=== PATIENT | female | born 1940 | race Caucasian/White ===

== ENCOUNTER 2016-05-20 08:15 | Observation (INO) | payer OTHER ==
[2016-05-20] MEDS ORDERED: MECLIZINE HCL 25 MG TAB PO ONE (08:25)
--- NOTE | 2016-05-20 08:28 | CPEKG ---
Heart Rate: 50 RR Interval: 1200 P-R Interval: 228 QRSD Interval: 92 QT Interval: 448 QTC Interval: 409 P [place]: 67 QRS [place]: -4 T Wave [place]: 46 EKG Severity - ABNORMAL ECG - EKG Impression: SINUS RHYTHM EKG Impression: FIRST DEGREE AV BLOCK EKG Impression: NONSPECIFIC REPOL ABNORMALITY, DIFFUSE LEADS Electronically Signed By: Aggie Comer 20-May-2016 22:33:52
[2016-05-20 08:34] LABS: % IMMATURE GRANULYOCYTES 0.3 % (0.0-1.1); ABSOLUTE IMMATURE GRANULOCYTES 0.02 10^3/uL (0.00-0.10); ADD DIFF? NO; ADD MORPH? NO; ADD SCAN? NO; ATYPICAL LYMPHOCYTE FLAG 0 (0-99); FRAGMENT RBC FLAG 0 (0-99); HEMATOCRIT 42.7 % (38.0-47.0); LEFT SHIFT FLG 0 (0-99); LIPEMIA HEMOLYSIS FLAG 80 (0-99); MEAN CELL HEMOGLOBIN CONCENTR. 32.8 g/dL (32.4-36.7); MEAN CELL VOLUME 97.7 fL (81.5-99.8); MEAN PLATELET VOLUME 10.1 fL (8.7-11.7); PLATELET CLUMPS FLAG 10 (0-99); PLATELET COUNT 270 10^3/uL (150-400); RED BLOOD CELL COUNT 4.37 10^6/uL (4.18-5.33); RED CELL DISTRIBUTION WIDTH 13.7 % (11.5-15.2)
[2016-05-20] MEDS ORDERED: NS 500 ML IV ONE ×2 (08:37→12:41)
--- NOTE | 2016-05-20 08:37 | EDPHY ---
General - Diagnostics EKG: I reviewed patient's EKG. See [place] system for interpretation - History History Review: I reviewed the patient's medical records Narrative: CHIEF COMPLAINT: Dizziness, vomiting HISTORY OF PRESENT ILLNESS: sudden onset of dizziness last night while home. This is described as "my head was swimming." She does describe a spinning sensation. This was significantly worse with ambulation. Improved with rest and laying down. She was able to sleep but upon waking this morning and ambulating, she feels as though she was going to fall because the dizziness. She is very nauseated but did not vomit until EN route. Contacted EMS and they her port that she was normal vital signs at time of arrival. She did vomit on the way here. She is not hypotensive but she has been mildly bradycardic in the upper 40s to 50. No chest pain or shortness of breath. No headache. No abdominal or urinary complaints. No back pain. No other associated complaints or modifying factors. Arrives by EMS and is seen at time of arrival REVIEW OF SYSTEMS: Ten systems reviewed and are negative unless otherwise noted in the HPI EXAMINATION General Appearance: Alert, no distress Head: normocephalic, atraumatic Eyes: Pupils equal and round, no conjunctival pallor or injection. horizontal nystagmus without vertical nystagmus. EOMs intact. ENT, Mouth: Mucous membranes moist . Uvula midline. Airway patent. Neck: Normal inspection, supple, non-tender . Painless range of motion all planes Respiratory: Lungs are clear to auscultation. No wheezing rhonchi or crackles Cardiovascular: bradycardic rate of 50 beats per minute. Regular rhythm. No murmur. Gastrointestinal: Abdomen is soft and nontender . No tympany or rigidity. No CVA tenderness. Neurological: A&O, Strength is 5/5 in all limbs. Sensory intact symmetrically. No pronator drift. No focal deficits. Skin: Warm and dry, no rash Extremities: Nontender, no pedal edema Psychiatric: Mood and affect normal DIFFERENTIAL DIAGNOSES: Including but not limited to vertigo, dizziness, hypoglycemia, bradycardia, dehydration MDM: 8:30 a.m. complaints consistent with vertigo without any chest pain, headache or stroke- like symptoms. She is bradycardic at 50 beats per minute. Patient has a known hypoxia at night due to her scoliosis, which she does wear 2-3 L at night. She is requiring 2 L at this time without complication. She has no respiratory abnormalities. EKG has been done. Shows sinus bradycardia 50 beats per minute. There are mild ST depressions scattered, we are currently trying to obtain a previous EKG. No acute ischemia. 10:40 a.m. ongoing dizziness with bradycardia and intermittent hypoxia. She was attempted ambulating and failed with significant dizziness and near vomiting. I discussed the case with the hospitalists, and they will admit the patient to their service for further care. She remains normotensive but bradycardic. EKG: Interpreted by Dr. Comer Rate is 50 beats per minute.Sinus bradycardia. First-degree block. Mild, less than 1 mm, ST depression throughout. No ST elevation. No T-wave inversion other than AV are and V1. Biphasic T-waves in the lateral leads. Interpretation: Sinus bradycardia with first-degree block SUPERVISION:Patient was evaluated in conjunction with the supervising physician. Please see their note for details. (Nicola Becker) Discussion: The patient was evaluated and managed by the Physician Adoption Counselor/ Nurse Practitioner. I discussed the patient's presentation and course with the midlevel provider with them and agree with the evaluation. My co-signature indicates that I have reviewed this chart and I agree with the findings and plan of care as documented. I am the secondary supervising physician. (Aggie Comer) - Objective Vital Signs: Initial Vital Signs Temperature (C) 36.5 C 05/20/16 08:15 Heart Rate 51 L 05/20/16 08:15 Respiratory Rate 16 05/20/16 08:15 Blood Pressure 149/67 H 05/20/16 08:15 O2 Sat (%) 98 05/20/16 08:15 O2 Delivery Mode Nasal Cannula O2 (L/minute) 4 Allergies/Adverse Reactions: No Known Allergies Allergy (Unverified 03/13/13 13:50) Home Medications: Medication Instructions Recorded Aspirin EC [Aspirin EC 81 mg (*)] 81 mg PO BIDMEAL 05/20/16 Calcium Carb W/Vit D [Calcium Carb 1,000 mg PO DAILY 05/20/16 W/Vit D 500/200 (*)] Digoxin [Lanoxin 125 mcg (RX)] 125 mcg PO DAILY 05/20/16 Estradiol 0.5 mg PO HS 05/20/16 Lisinopril [Zestril 10 mg (*)] 10 mg PO HS 05/20/16 Multivitamins [Multivitamin (*)] 1 each PO DAILY@19 05/20/16 Propafenone HCl [Propafenone HCl 325 mg PO BID 05/20/16 ER] medroxyPROGESTERone [Provera 2.5 2.5 mg PO HS 05/20/16 mg (*)] metFORMIN HCL [Glucophage 500 mg 500 mg PO BIDMEAL 05/20/16 (*)] Acetaminophen [Tylenol 325mg (*)] 650 mg PO Q6HRS PRN #0 tab 05/21/16 Diazepam [Valium 2 MG (*)] 2 mg PO Q6HRS PRN #14 tab 05/21/16 Ibuprofen [Motrin (*)] 600 mg PO Q8HRS PRN #0 tab 05/21/16 Meclizine HCl [Meclizine HCl 25 mg 25 mg PO BID PRN #14 tab 05/21/16 (RX,OTC)] Laboratory Results: Laboratory Results 05/20/16 08:16 05/20/16 08:16 Medications Given: Discontinued Medications Aspirin Buffered (Aspirin Ec) 81 mg PO BIDMEAL [facility] Stop: 11/16/16 17:59 Last Admin: 05/21/16 10:15 Dose: Not Given Calcium/Vitamin D (Calcium Carb W/Vit D) 1,000 mg PO DAILY [facility] Stop: 11/17/16 08:59 Last Admin: 05/21/16 10:14 Dose: 1,000 mg Digoxin (Lanoxin) 125 mcg PO DAILY [facility] Stop: 11/17/16 08:59 Last Admin: 05/21/16 10:14 Dose: 125 mcg Estradiol (Estradiol) 0.5 mg PO [facility] Stop: 11/16/16 20:59 Last Admin: 05/20/16 21:10 Dose: 0.5 mg Sodium Chloride (Ns) 500 mls @ 0 mls/hr IV ONCE ONE PRN Reason: Wide Open Stop: 05/20/16 08:38 Last Admin: 05/20/16 08:47 Dose: 500 mls Sodium Chloride (Ns) 500 mls @ 1,500 mls/hr IV ONCE ONE Stop: 05/20/16 13:00 Last Admin: 05/20/16 13:14 Dose: 500 mls Sodium Chloride (Ns) 1,000 mls @ 100 mls/hr IV CONT YOAV Stop: 11/17/16 03:14 Last Admin: 05/21/16 03:42 Dose: 1,000 mls Insulin Human Lispro (Humalog Lispro) 0 unit SC TIDMEAL YOAV PRN Reason: Protocol Stop: 11/16/16 17:59 Last Admin: 05/21/16 09:17 Dose: Not Given Lisinopril (Zestril) 10 mg PO HS [facility] Stop: 11/16/16 20:59 Last Admin: 05/20/16 21:11 Dose: 10 mg Meclizine HCl (Meclizine Hcl) 12.5 mg PO EDNOW ONE Stop: 05/20/16 08:26 Last Admin: 05/20/16 09:58 Dose: 12.5 mg Medroxyprogesterone Acetate (Provera) 2.5 mg PO HS [facility] Stop: 11/16/16 20:59 Last Admin: 05/20/16 21:10 Dose: 2.5 mg Multivitamins (Tab-A-Gabo) 1 each PO DAILY@19 [facility] Stop: 11/16/16 18:59 Last Admin: 05/20/16 17:55 Dose: 1 each Ondansetron HCl (Zofran) 4 mg IVP EDNOW ONE Stop: 05/20/16 08:48 Last Admin: 05/20/16 08:47 Dose: 4 mg Propafenone HCl (Rythmol Sr) 325 mg PO BID [facility] Stop: 11/16/16 20:59 Last Admin: 05/21/16 10:17 Dose: Not Given Departure - Departure Disposition: [facility] Acute Clinical Impression: Dizziness, Sinus bradycardia, Hypoxia Condition: Good
[2016-05-20] MEDS ORDERED: ONDANSETRON 4 MG/2 ML VIAL ONE (08:45)
[2016-05-20] MEDS ORDERED: ONDANSETRON 4 MG/2 ML VIAL IVP ONE (08:47)
[2016-05-20 08:51] LABS: APTT 27.9 SEC (23.0-38.0); INR 0.98 (0.83-1.16); PROTIME(PATIENT) 12.9 SEC (12.0-15.0)
[2016-05-20 09:02] LABS: ALANINE AMINOTRANSFERASE 30 IU/L (9-52); ALBUMIN 3.7 g/dL (3.5-5.0); ALKALINE PHOSPHATASE 51 IU/L (38-126); ANION GAP 10 mEq/L (8-16); ASPARTATE AMINOTRANSFERASE 19 IU/L (14-46); BILIRUBIN,TOTAL 0.6 mg/dL (0.1-1.4); BILIRUBIN-CONJUGATED 0.2 mg/dL (0.0-0.5); BILIRUBIN-UNCONJUGATED 0.4 mg/dL (0.0-1.1); CALCIUM 9.4 mg/dL (8.5-10.4); CARBON DIOXIDE 29 mEq/l (22-31); CHLORIDE 105 mEq/L (97-110); CREATININE 0.9 mg/dL (0.6-1.0); DIGOXIN 1.2 ng/mL (0.8-2.0); GLOMERULAR FILTRATION RATE > 60; GLUCOSE 120 mg/dL (70-100); POTASSIUM 4.2 mEq/L (3.5-5.2); SODIUM 144 mEq/L (134-144); TOTAL PROTEIN 6.2 g/dL (6.3-8.2)
--- NOTE | 2016-05-20 09:04 | DX ---
Portable Chest, Single View 8:46 a.m. Hours Indication: Dizziness Comparison: 2 view chest dated June 10, 2013 Findings: No pulmonary edema or effusion. Cardiomegaly, hyperinflation, diffuse peribronchial thicken ing, marked dextrorotary curvature of the thoracic spine and 2 posterior rods with laminar hooks are unchanged since 2013. Impression: 1. No edema or acute process. 2. Cardiomegaly and chronic airways disease similar to May 2013.
[2016-05-20 09:11] LABS: TROPONIN I < 0.012 ng/mL (0-0.034)
[2016-05-20] MEDS ORDERED: ACETAMINOPHEN 325 MG TAB PO PRN (12:41)
[2016-05-20] MEDS ORDERED: ONDANSETRON DISINTEGRATING 4 MG TAB PO PRN (12:41)
[2016-05-20] MEDS ORDERED: IBUPROFEN 600 MG TAB PO PRN (12:41)
[2016-05-20] MEDS ORDERED: D50W 25 GM/50 ML SYR IVP PRN (12:44)
[2016-05-20] MEDS ORDERED: DIAZEPAM 2 MG TAB PO PRN (16:29)
[2016-05-20] MEDS ORDERED: MECLIZINE HCL 25 MG TAB PO PRN (16:29)
--- NOTE | 2016-05-20 16:34 | PDGENHP ---
History and Physical - Chief Complaint dizzyness - History of Present Illness 75 yo F with PMH of DM2 and paroxysmal a fib presenting with dizzyness and n/v. She notes that since this morning she has had dizzyness and sense that her head was spinning and her gait was off balance. She notes that it is worse with any movement including movement of her head, so she has been trying to stay very still since this morning. It was so severe and she was so concerned that she might fall, that she ultimately called 911 to bring her to the ER. She has had similar sxs in the past, but they have never lasted this long. There was no syncope or near syncope. She has not had chest pain or palpitations. She has not felt ill recently, has not had any cold like sxs or sinus congestion. Her symptoms have improved since getting meclizine in the ER, but she is still worried to move much or turn her head quickly. History Information - Allergies/Home Medication List Allergies/Adverse Reactions: No Known Allergies Allergy (Unverified 03/13/13 13:50) Home Medications: Aspirin EC [Aspirin EC 81 mg (*)] 81 mg PO BIDMEAL 05/20/16 [Last Taken 05/19/16 ] Calcium Carb W/Vit D [Calcium Carb W/Vit D 500/200 (*)] 1,000 mg PO DAILY [Last Taken 05/19/16] Digoxin [Lanoxin 125 mcg (RX)] 125 mcg PO DAILY 05/20/16 [Last Taken 05/19/16] Estradiol [Estradiol 0.5 MG (RX)] 0.5 mg PO HS 05/20/16 [Last Taken 05/19/16] Lisinopril [Zestril 10 mg (*)] 10 mg PO HS 05/20/16 [Last Taken 05/19/16] Multivitamins [Multivitamin (*)] 1 each PO DAILY@19 05/20/16 [Last Taken 19:00] Propafenone HCl [Propafenone HCl ER] 325 mg PO BID 05/20/16 [Last Taken 05/20/16 ] medroxyPROGESTERone [Provera 2.5 mg (*)] 2.5 mg PO HS 05/20/16 [Last Taken 05/19] metFORMIN HCL [Glucophage 500 mg (*)] 500 mg PO BIDMEAL 05/20/16 [Last Taken ] I have personally reviewed and updated: family history, medical history, social history, surgical history - Past Medical History atrial fibrillation (paroxysmal), diabetes type 2, hypertension Additional medical history: valvular heart disease with mitral valve prolapse. hematuria - Surgical History Reports: no pertinent surgical hx - Family History Positive for: non-pertinent - Social History Smoking Status: Former smoker Alcohol Use: Occasionally Drug Use: None Review of Systems ROS: 10pt was reviewed & negative except for what was stated in HPI & below Physical Exam Temp Pulse Resp BP Pulse Ox 36.7 C 52 L 18 111/56 L 96 05/20/16 12:35 05/20/16 12:35 05/20/16 12:35 05/20/16 12:35 05/20/16 12:35 Constitutional: no apparent distress, appears nourished Eyes: PERRL, EOMI Ears, Nose, Mouth, Throat: moist mucous membranes, hearing normal Cardiovascular: regular rate and rhythym, systolic murmur, No edema Respiratory: no respiratory distress, no rales or rhonchi, clear to auscultation Gastrointestinal: normoactive bowel sounds, soft, non-tender abdomen, no palpable masses Genitourinary: no bladder tenderness Skin: warm, normal color Musculoskeletal: full muscle strength, no muscle tenderness Neurologic: AAOx3, sensation intact bilaterally, CN II-XII Intact Psychiatric: interacting appropriately, not anxious, not encephalopathic Lab Data & Imaging Review 05/20/16 08:16 05/20/16 08:16 WBC 6.46 10^3/uL (3.80-9.50) 05/20/16 08:16 RBC 4.37 10^6/uL (4.18-5.33) 05/20/16 08:16 Hgb 14.0 g/dL (12.6-16.3) 05/20/16 08:16 POC Hgb 15.3 gm/dL (12.3-15.9) 05/20/16 08:21 Hct 42.7 % (38.0-47.0) 05/20/16 08:16 POC Hct 45 % (35.5-47.5) 05/20/16 08:21 MCV 97.7 fL (81.5-99.8) 05/20/16 08:16 MCH 32.0 pg (27.9-34.1) 05/20/16 08:16 MCHC 32.8 g/dL (32.4-36.7) 05/20/16 08:16 RDW 13.7 % (11.5-15.2) 05/20/16 08:16 Plt Count 270 10^3/uL (150-400) 05/20/16 08:16 MPV 10.1 fL (8.7-11.7) 05/20/16 08:16 Neut % (Auto) 53.1 % (39.3-74.2) 05/20/16 08:16 Lymph % (Auto) 32.4 % (15.0-45.0) 05/20/16 08:16 [place] % (Auto) 9.0 % (4.5-13.0) 05/20/16 08:16 Eos % (Auto) 3.7 % (0.6-7.6) 05/20/16 08:16 Baso % (Auto) 1.5 % (0.3-1.7) 05/20/16 08:16 Nucleat RBC Rel Count 0.0 % (0.0-0.2) 05/20/16 08:16 Absolute Neuts (auto) 3.43 10^3/uL (1.70-6.50) 05/20/16 08:16 Absolute Lymphs (auto) 2.09 10^3/uL (1.00-3.00) 05/20/16 08:16 Absolute Monos (auto) 0.58 10^3/uL (0.30-0.80) 05/20/16 08:16 Absolute Eos (auto) 0.24 10^3/uL (0.03-0.40) 05/20/16 08:16 Absolute Basos (auto) 0.10 10^3/uL (0.02-0.10) 05/20/16 08:16 Absolute Nucleated RBC 0.00 10^3/uL (0-0.01) 05/20/16 08:16 Immature Gran % 0.3 % (0.0-1.1) 05/20/16 08:16 Immature Gran # 0.02 10^3/uL (0.00-0.10) 05/20/16 08:16 PT 12.9 SEC (12.0-15.0) 05/20/16 08:16 INR 0.98 (0.83-1.16) 05/20/16 08:16 APTT 27.9 SEC (23.0-38.0) 05/20/16 08:16 POC Sodium 144 mEq/L (134-144) 05/20/16 08:21 Sodium 144 mEq/L (134-144) 05/20/16 08:16 POC Potassium 3.9 mEq/L (3.3-5.0) 05/20/16 08:21 Potassium 4.2 mEq/L (3.5-5.2) 05/20/16 08:16 POC Chloride 103 mEq/L (96-108) 05/20/16 08:21 Chloride 105 mEq/L (97-110) 05/20/16 08:16 Carbon Dioxide 29 mEq/l (22-31) 05/20/16 08:16 Anion Gap 10 mEq/L (8-16) 05/20/16 08:16 POC BUN 24 mg/dL (7-23) H 05/20/16 08:21 BUN 22 mg/dL (7-23) 05/20/16 08:16 Creatinine 0.9 mg/dL (0.6-1.0) 05/20/16 08:16 POC Creatinine 0.9 mg/dL (0.6-1.2) 05/20/16 08:21 Estimated GFR > 60 05/20/16 08:16 Glucose 120 mg/dL (70-100) H 05/20/16 08:16 POC Glucose 89 mg/dL (70-100) 05/20/16 16:06 Calcium 9.4 mg/dL (8.5-10.4) 05/20/16 08:16 Total Bilirubin 0.6 mg/dL (0.1-1.4) 05/20/16 08:16 Conjugated Bilirubin 0.2 mg/dL (0.0-0.5) 05/20/16 08:16 Unconjugated Bilirubin 0.4 mg/dL (0.0-1.1) 05/20/16 08:16 AST 19 IU/L (14-46) 05/20/16 08:16 ALT 30 IU/L (9-52) 05/20/16 08:16 Alkaline Phosphatase 51 IU/L (38-126) 05/20/16 08:16 Troponin I < 0.012 ng/mL (0-0.034) 05/20/16 08:16 Total Protein 6.2 g/dL (6.3-8.2) L 05/20/16 08:16 Albumin 3.7 g/dL (3.5-5.0) 05/20/16 08:16 Lipase 405.0 IU/L (23-300) H 05/20/16 08:16 Digoxin 1.2 ng/mL (0.8-2.0) 05/20/16 08:16 Visualized and Interpreted Chest x-ray results: Yes Chest X-Ray results: no infiltrate, other (cardiomegaly and airways disease similar to prior) Visualized and Interpreted EKG results: Yes EKG Interpretation: Positive for: normal sinsus rhythm EKG additional interpertation: 1st degree AV block, no change from prior Assessment & Plan Assessment: 75 yo F with PMH of a fib and DM presenting with vertigo # vertigo: sxs sound c/w BPV and on exam sxs are reproduced by turning her head , which she remains reluctant to do. No focal neuro findings to suggest stroke or anatomical brain abnormality, however if sxs do not improve over the next 24 hours would consider further w/u including imaging of brain. Will continue meclizine and add diazepam. Differential would also include cardiac etiology jhoan given hx of a fib as next # bradycardia: with hx of afib, on ecg appears to be sinus bradycardia only present. Monitoring on tele, will get echo to evaluate further. # a fib: as above, continue op medications for now including digoxin and rhythmol. will check dig level. # htn: bp well controlled, continue op meds # VHD: known mvp, last echo about 1 year ago, will get echo today as above # dispo: observation status, will need < 48 hours stay likely for eval/mgmt of above Pt new to my care. Old records including op cardiology records reviewed and summarized as above. Care plan reviewed with ER doctor including plans for observation overnight.
[2016-05-20] MEDS: INSULIN LISPRO 100 UNIT/ML SC SCH (17:11)
[2016-05-20] MEDS: ASPIRIN EC 81 MG TAB PO SCH (17:55)
[2016-05-20] MEDS ORDERED: MULTIVITAMINS 1 EACH TAB PO SCH (19:00)
[2016-05-20] MEDS ORDERED: LISINOPRIL 10 MG TAB PO SCH (21:00)
[2016-05-20] MEDS ORDERED: ESTRADIOL 0.5 MG TAB PO SCH (21:00)
[2016-05-20] MEDS: PROPAFENONE HCL SR 325 MG CAP PO SCH (21:10)
[2016-05-21] MEDS ORDERED: NS 1,000 ML IV SCH (03:15)
[2016-05-21 08:05] VITALS: BP 88/50; PULSE 49; RESP 18; TEMP 97.9; O2SAT 96
[2016-05-21] MEDS ORDERED: CALCIUM CARB W/VIT D 500 MG TAB PO SCH (09:00)
[2016-05-21] MEDS ORDERED: DIGOXIN 125 MCG TAB PO SCH (09:00)
[2016-05-21] MEDS: INSULIN LISPRO 100 UNIT/ML SC SCH (09:17)
--- NOTE | 2016-05-21 09:32 | PDDCSUM ---
Discharge Summary Discharge Summary: Dates of service 05/20-05/21/16 Consultations: none Procedures: echocardiogram Brief history: Patient 75 yo with hx of DM, A fib presenting with dizzyness, balance issues and nausea c/w vertigo Hospital course by problem: # vertigo: most c/w BPV by history and exam. Resolved overnight with IVF and meclizine. No syncope or near syncope. No focal neuro findings. # paroxysmal a fib: currently in SR, continue asa, digoxin, propafenone # chronic diastolic heart failure: with preserved EF, euvolemic Dc to home will f/u with PCP/cardiology Meds: see EHR, addition of meclizine and valium for short course prn vertigo > 35 min spent in dc, more than half in coordination of care
[2016-05-21] MEDS: ASPIRIN EC 81 MG TAB PO SCH (10:15)
[2016-05-21] MEDS: PROPAFENONE HCL SR 325 MG CAP PO SCH (10:17)
--- NOTE | 2016-05-21 15:23 | ECHO ---
[id number] + + [address] : : [place] [address] : : [phone] + + Adult Echocardiographic Report + ------+ :Name: FRANCESCA TERRY WStudy Date: 05/20/2016 02:31 PM : : Hospital Admission Number: [id number] Locatio n: 215: :: 1940 Gender: Female Height: 62 in : :Age: 75 yrs Race: WH Weight: 125 lb : :Reason For Study: Near Syncope : : BSA: 1.6 meters 2 : :History: AFIB : + ------+ MMode/2D Measurements & Calculations IVSd: 0.88 cm RVDd: 3.7 cm FS: 45.1 % LVOT diam: 1.9 cm LVPWd: 0.83 cm LVIDd: 3.7 cm EDV(Teich): LVOT area: LVIDs: 2.0 cm 57.0 ml 2.8 cm2 ESV(Teich): 13.0 ml EF(Teich): 77.2 % LVLd ap4: 8.0 cm SV(MOD-sp4): EDV(MOD-sp4): 44.0 ml 66.0 ml LVLs ap4: 6.3 cm ESV(MOD-sp4): 22.0 ml EF(MOD-sp4): 66.7 % Normal Measurement Values: + + :LVIDd (3.5-5.7cm) IVSd (0.6-1.1cm) LVPWd (0.6-1.1cm) Aortic Root (2.0-3.7cm)Left Atrium (1.5-4.0cm): :LV Vol(d) (76-115ml) LV Vol(s) (29-48ml) E[place]ec Fraction (50-65%)PV Santo (0.6- 1.2m/s) TV Santo (0.4-1.0m/s) : :MV E Santo (0.8-1.0m/s)MV A Santo (0.3-1.0m/s)LVOT Santo (0.7-1.2m/s) Asc Ao Santo ( 0.9-1.8m/s) : + + Doppler Measurements & Calculations MV E max santo: MV V2 max: Ao V2 max: LV V1 mean P.7 cm/sec 113.8 cm/sec 143.6 cm/sec 3.2 mmHg MV A max santo: MV max PG: Ao max P.2 mmHgLV V1 mean: 59.2 cm/sec 5.2 mmHg Ao mean P.7 cm/sec MV E/A: 1.7 MV V2 mean: 5.0 mmHg LV V1 VTI: 32.1 cm MV dec time: 54.1 cm/sec Ao V2 mean: 0.24 sec MV mean P.0 cm/sec 1.4 mmHg Ao V2 VTI: 35.0 cm MV V2 VTI: 36.6 cm AMISHA(I,D): 2.6 cm2 MVA(VTI): 2.5 cm2 SV(LVOT): 91.4 ml PA V2 max: TR max santo: 99.9 cm/sec 253.4 cm/sec PA max PG: TR max P.0 mmHg 25.7 mmHg RAP systole: 10.0 mmHg RVSP(TR): 35.7 mmHg Left Ventricle The left ventricle is normal in size and function. There is normal left ventricular wall thickness. Ejection Fraction = 65-70%. There is Doppler evidence for diastolic dysfunction. No regional wall motion abnormalities noted. Right Ventricle The right ventricle is normal in size and function. Atria The left atrial size is normal. Right atrial size is normal. The interatrial septum is intact with no evidence for an atrial septal defect. Mitral Valve The mitral valve is normal in structure and function. There is no mitral valve stenosis. There is trace to mild mitral regurgitation. Tricuspid Valve The tricuspid valve is normal in structure and function. There is no tricuspid stenosis. There is mild tricuspid regurgitation. Right ventricular systolic pressure is normal. Aortic Valve The aortic valve is not well visualized. There is no aortic stenosis. There is no aortic insufficiency. Pulmonic Valve The pulmonic valve is not well visualized. There is no pulmonic valvular stenosis. There is no pulmonic valvular regurgitation. Great Vessels The aortic root is normal size. Pericardium/Pleural There is a fat pad seen. Conclusion A complete two-dimensional transthoracic echocardiogram was performed (2D, M-mode, Doppler and color flow Doppler). The left ventricle is normal in size and function. Ejection Fraction = 65-70%. There is Doppler evidence for diastolic dysfunction. There are no regional wall motion abnormalities. Normal appearing valvular structures. There is trace to mild mitral regurgitation. There is mild tricuspid regurgitation. Right ventricular systolic pressure is normal. Final Reading Physician: Terrell Albert signed on 05/21/2016 03:22 PM Ordering Physician: Elias Roy Performed By: Maribeth Pruett
[2016-05-21 22:46] LABS: HEMOGLOBIN A1C 5.9 % (4.0-6.0)
== END 2016-05-21 10:54 | disposition home or self-care (01) ==
LOC: EDUNIT# → INTOOBSV 10:45 → F2W 12:01
PROVIDERS: ADMIT Internal Medicine; ATTEND Internal Medicine
DX: R42 Dizziness and giddiness (principal); I48.0 Paroxysmal atrial fibrillation; R11.0 Nausea; R00.1 Bradycardia, unspecified; I50.22 Chronic systolic (congestive) heart failure; R09.02 Hypoxemia; E11.9 Type 2 diabetes mellitus without complications; I34.1 Nonrheumatic mitral (valve) prolapse
CPT/HCPCS: 71010; 93005; 93306; 96361; 96374; 99285; G0378; J2405; 82947-QW

== ENCOUNTER → 2016-06-02 | Outpatient (CLI) | payer OTHER | LOC: BHFA 11:00 | PROVIDERS: ATTEND Internal Medicine Cardiovascular Disease | DX: I48.91 Unspecified atrial fibrillation (principal); E11.9 Type 2 diabetes mellitus without complications; E78.00 Pure hypercholesterolemia, unspecified ==

== ENCOUNTER → 2016-07-28 | Outpatient (CLI) | payer OTHER | LOC: FIMAGING 10:25 | DX: Z12.31 Encounter for screening mammogram for malignant neoplasm of breast (principal) | CPT/HCPCS: G0202 ==

== ENCOUNTER → 2016-09-06 | Outpatient (CLI) | payer OTHER ==
[~2016-09-06] MED LIST: IOPAMIDOL (ISOVUE-300) 100 ML BTL ONE
== END ==
LOC: FIMAGING 15:35
PROVIDERS: ATTEND Urology
DX: R31.9 Hematuria, unspecified (principal); N20.0 Calculus of kidney; K80.20 Calculus of gallbladder without cholecystitis without obstruction; K57.30 Diverticulosis of large intestine without perforation or abscess without bleeding
CPT/HCPCS: 74178; Q9967

== ENCOUNTER → 2016-11-21 | Outpatient (CLI) | payer OTHER | LOC: BHFA 10:00 | PROVIDERS: ATTEND Internal Medicine | DX: I48.91 Unspecified atrial fibrillation (principal); R01.1 Cardiac murmur, unspecified; I34.1 Nonrheumatic mitral (valve) prolapse ==

== ENCOUNTER → 2017-10-25 | Outpatient (CLI) | payer OTHER | LOC: FIMAGING 09:33 | PROVIDERS: ATTEND Obstetrics & Gynecology | DX: Z12.31 Encounter for screening mammogram for malignant neoplasm of breast (principal) ==

== ENCOUNTER 2017-11-21 05:36 | Day surgery (SDC) | payer OTHER ==
--- NOTE | 2017-11-20 16:17 | GHP ---
[f rep st] PREOP HISTORY AND PHYSICAL DATE OF ADMISSION: 11/21/2017 ADMISSION DIAGNOSIS: Left renal calculi and gross hematuria. HISTORY OF PRESENT ILLNESS: A 77-year-old lady who is referred from Cardiology because of gross amelia turia while on Eliquis. Evaluation noted that on CAT scan she had left nephrolithiasis, and she was admitted for left ureteroscopic removal of the stones. She has had kidney stones in the past, treate d once with extracorporeal shockwave lithotripsy and once with ureteroscopy. At the present time, marissa liao is admitted for the treatment. Indication, complications, and risks have been discussed. Written and verbal consent has been obtained. PAST MEDICAL HISTORY: Hematuria, hypertension, nephrolithiasis. PREVIOUS SURGERIES: Back surgery and kidney stone surgery. MEDICATIONS: Include aspirin, digoxin, lisinopril, medroxyprogesterone, metformin, multivitamins, an d the Eliquis. ALLERGIES: None. FAMILY HISTORY: Noncontributory. SOCIAL HISTORY: Former smoker. Nondrinker. REVIEW OF SYSTEMS: Negative for cardiac, respiratory, GI, and endocrine. PHYSICAL EXAMINATION: VITAL SIGNS: Stable. CHEST: Clear. HEART: Regular rate and rhythm. ABDOM EN: Normal. No organomegaly, rebound, or guarding. LOWER EXTREMITIES: Normal. PLAN: At the present time, she is to undergo a left ureteroscopy with laser lithotripsy. /[id number]/MODL
[2017-11-21] MEDS ORDERED: LIDOCAINE 1% 2 ML INJ ID PRN (05:54)
[2017-11-21] MEDS ORDERED: LR 1,000 ML IV ONE (05:54)
[2017-11-21] MEDS ORDERED: LIDOCAINE 2% JELLY 20 ML (UROJECT) ONE (06:41)
[2017-11-21] MEDS ORDERED: IOPAMIDOL (ISOVUE-M 300) 15 ML VIAL ONE (06:42)
[2017-11-21] MEDS ORDERED: ceFAZolin 2 GM/DEXTROSE 100 ML IV ONE (06:54)
--- NOTE | 2017-11-21 06:54 | PDHPUP ---
History & Physical Update H&P update statement: This history and physical update is based on an assessment of the patient which was completed after admission or registration (within 24 hours), but prior to the surgery/procedure. H&P update: H&P reviewed & patient examined, no change in patient's condition since H&P completed
--- NOTE | 2017-11-21 07:18 | PDANEPAE ---
ANE History of Present Illness ureteroscopy - stone manip ANE Past Medical History - Cardiovascular History Hx Hypertension: Yes Hx Arrhythmias: Yes Hx Chest Pain: No Hx Coronary Artery / Peripheral Vascular Disease: No Hx CHF / Valvular Disease: Yes Hx Palpitations: No Cardiovascular History Comment: afib. hypercholesterolemia. htn. mitral regurg with mitral valve prolapse. followed by [facility] - Pulmonary History Hx COPD: No Hx Asthma/Reactive Airway Disease: No Hx Recent Upper Respiratory Infection: No Hx Oxygen in Use at Home: Yes O2 in Use at Home (L/minute): 2l at noc Hx Sleep Apnea: No Sleep Apnea Screening Result - Last Documented: Negative Pulmonary History Comment: lung capacity impaired d/t scoliosis - Neurologic History Hx Cerebrovascular Accident: No Hx Seizures: No Hx Dementia: No Neurologic History Comment: severe scoliosis with surgery - Endocrine History Hx Diabetes: Yes Hypothyroid: No Hyperthyroid: No Obesity: no Endocrine History Comment: dm type 2 - Renal History Hx Renal Disorders: Yes Renal History Comment: hx of kidney stones with previous lithotripsies - Liver History Hx Hepatic Disorders: No - Neurological & Psychiatric Hx Hx Neurological and Psychiatric Disorders: No - Cancer History Hx Cancer: Yes Cancer History Comment: hx of basal cell to arm - Congenital Disorder History Hx Congenital Disorders: No - GI History Hx Gastrointestinal Disorders: Yes Gastrointestinal History Comment: hx of hemorrhoidectomy. constipation - Other Health History Other Health History: wears reading glasses. dental implant x1 - Chronic Pain History Chronic Pain: No - Surgical History Prior Surgeries: tonsillectomy many yrs ago. back surgery for scoliosis. hemorrhoidectomy. lithrotripsies ANE Review of Systems Review of Systems: - Exercise capacity Exercise capacity: >=4 METS METS (RN): 3 METS ANE Patient History - Allergies Allergies/Adverse Reactions: No Known Allergies Allergy (Verified 11/20/17 17:34) - Home Medications Home medications: home medication list seen and reviewed Home Medications: Aspirin EC [Aspirin EC 81 mg (*)] BIDMEAL 05/20/16 [Last Taken 11/20/17 08:00] Calcium Carb W/Vit D [Calcium Carb W/Vit D 500/200 (*)] 05/20/16 [Last Taken 08:00] Digoxin [Lanoxin 125 mcg (RX)] 05/20/16 [Last Taken 11/20/17 08:00] Estradiol HS 05/20/16 [Last Taken 11/20/17 22:00] Lisinopril [Zestril 10 mg (*)] HS 05/20/16 [Last Taken 11/20/17 19:00] Multivitamins [Multivitamin (*)] 05/20/16 [Last Taken 11/19/17 20:00] Propafenone HCl [Propafenone HCl ER] BID 05/20/16 [Last Taken 11/20/17 20:00] medroxyPROGESTERone [Provera 2.5 mg (*)] HS 05/20/16 [Last Taken 11/20/17 22:00] metFORMIN HCL [Glucophage 500 mg (*)] BIDMEAL 05/20/16 [Last Taken 11/20/17 08: 00] - NPO status NPO Status: no food or drink >8 hours NPO Since - Liquids (Date): 11/21/17 NPO Since - Liquids (Time): 13:30 NPO Since - Solids (Date): 11/20/17 NPO Since - Solids (Time): 19:30 - Smoking Hx Smoking Status: Former smoker - Family Anes Hx Family Hx Anesthesia Complications: none ANE Labs/Vital Signs - Labs Result Diagrams: 11/21/17 06:35 - Vital Signs Blood Pressure: 90/54 Heart Rate: 51 Respiratory Rate: 16 O2 Sat (%): 91 Height: 157.48 cm Weight: 54.431 kg ANE Physical Exam - Airway Mallampati Score: Class 2 Mouth exam: normal dental/mouth exam - Pulmonary Pulmonary: no respiratory distress - Cardiovascular Cardiovascular: irregularly irregular - ASA Status ASA Status: II ANE Anesthesia Plan Anesthesia Plan: GA w LMA
[2017-11-21] MEDS ORDERED: fentaNYL 100 MCG/2 ML INJ ONE (07:22)
[2017-11-21] MEDS ORDERED: PROPOFOL 200 MG/20 ML VIAL ONE (07:22)
[2017-11-21] MEDS ORDERED: KETOROLAC 30 MG/1 ML SDV ONE (07:23)
[2017-11-21] MEDS ORDERED: ONDANSETRON 4 MG/2 ML VIAL ONE (07:23)
[2017-11-21] MEDS ORDERED: LIDOCAINE 2% 5 ML SDV ONE (07:23)
[2017-11-21] MEDS ORDERED: DEXAMETHASONE 4 MG/ML VIAL ONE (07:23)
[2017-11-21] MEDS ORDERED: ePHEDrine SULFATE 25 MG/5 ML SYR ONE (07:35)
[2017-11-21] MEDS ORDERED: PHENYLEPHRINE 10 MG/ML SDV ONE (07:38)
--- NOTE | 2017-11-21 08:40 | POSTOPPROG ---
Post Op Note Date of Operation: 11/21/17 Surgeon: Reuben Reyes Anesthesiologist: Mike Anesthesia: LMA Pre-op Diagnosis: left nephrolithiasis Procedure: ureteroscopy, stent, laser litho, fluoroscopy Inf/Abcess present in the surg proc area at time of surgery?: No EBL: Minimal Drains: Other (stent) Specimen(s): none,dictated
--- NOTE | 2017-11-21 08:41 | GOP ---
[f rep st] OPERATIVE REPORT DATE OF OPERATION: 11/21/2017 SURGEON: Reuben Reyes MD ANESTHESIA: General. ANESTHESIOLOGIST: Edmar Mckeon MD PREOPERATIVE DIAGNOSIS: Left nephrolithiasis. POSTOPERATIVE DIAGNOSIS: Left nephrolithiasis. PROCEDURE PERFORMED: Cystoscopy, retrograde ureteral pyelogram, ureteral access sheath placement, fl exible ureteroscopy and nephroscopy with holmium laser lithotripsy of renal calculi and then placemen t of ureteral stent under fluoroscopic control. FINDINGS: DESCRIPTION OF PROCEDURE: The lady underwent general anesthesia, prepped and draped in normal steril e fashion in dorsal lithotomy position. Urethra normal. Bladder had no tumor, stones, foreign peyton s or diverticula. The left ureteral orifice was cannulated with a [place] catheter and retrograde re vealed the renal collecting stones x2, and then at that point, passed the ureteral access sheath up t o the UPJ and the flexible scope was passed through that sheath and fragmented the stones with the Ho lmium laser into multiple pieces, that were dust size. At the end of the procedure, there were no fr agments that were larger than the caliber of the laser fiber. A 4.7 multi-length stent was passed un alexander fluoroscopic control and was in good position. She will be discharged home with that, to see me in 1 week for stent removal. No complications encountered. Specimens will be collected outpatient. /[id number]/MODL
--- NOTE | 2017-11-21 08:50 | CPEKG ---
Heart Rate: 55 RR Interval: 1091 P-R Interval: 236 QRSD Interval: 98 QT Interval: 439 QTC Interval: 420 P [place]: 80 QRS [place]: -52 T Wave [place]: 222 EKG Severity - ABNORMAL ECG - EKG Impression: SINUS RHYTHM EKG Impression: FIRST DEGREE AV BLOCK EKG Impression: LAD, CONSIDER LEFT ANTERIOR FASCICULAR BLOCK EKG Impression: BORDERLINE REPOL ABNORMALITY, DIFFUSE LEADS Electronically Signed By: Jayne Gudino 21-Nov-2017 16:15:24
[2017-11-21] MEDS ORDERED: LR 500 ML IV PRN (09:01)
[2017-11-21] MEDS ORDERED: fentaNYL 100 MCG/2 ML INJ IVP PRN (09:01)
[2017-11-21] MEDS ORDERED: ONDANSETRON 4 MG/2 ML VIAL IVP PRN (09:01)
[2017-11-21] MEDS ORDERED: NALOXONE HCL 0.4 MG/ML INJ IVP PRN (09:01)
--- NOTE | 2017-11-21 09:01 | POSTANESTH ---
Post Anesthetic Evaluation Cardiovascular Status: Normal, Stable Respiratory Status: Normal, Stable Level of Consciousness/Mental Status: Can Participate in Eval Pain Control: Adequate, Prn Tx Ordered Nausea/Vomiting Control: Adequate, Prn Tx Ordered Complications Possibly Related to Anesthesia: Other, See Comments (ST depression noted during case, resolved to baseline, Dr. Mcmullen contacted, Dr. Lay will evaluate the patient prior to discharge)
--- NOTE | 2017-11-21 09:48 | PDHOMEO2F ---
Home Oxygen Face to Face Home Orders: I certify that a physician or a nurse practitioner or physician's supply assistant has had a [id number] encounter with this patient on the date of this order due to the diagnosis listed, which relates to the primary reason the patient requires home oxygen. Alternative treatments have been tried, or considered, and deemed ineffective. It is anticipated that supplemental oxygen will result in improvement with treatment. Home oxygen qualifying diagnosis: restrictive lung disease with hypoxia SpO2 on room air (%): 74 Frequency of home oxygen needed: continuous Home oxygen liters per minute: 2 Home oxygen delivery device: nasal cannula Concentrator: Yes E-tanks for mobility and back up: Yes If ordering portable O2, is the patient mobile in the home?: Yes I certify that, based on these findings, the home oxygen is medically necessary for this patient for the following length of time. Length of time home oxygen needed: 1 week (transport to home O2 service only)
--- NOTE | 2017-11-21 11:07 | GCON ---
[f rep st] CONSULTATION CARDIOLOGY CONSULT DATE OF CONSULTATION: 11/21/2017 REQUESTING PHYSICIANS: Dr. West Reyes and Dr. Edmar Mckeon. PRIMARY CREDIT COLLECTION SPECIALIST: Dr. Dominic Mcmullen MD. CHIEF COMPLAINT: Abnormal EKG. HISTORY OF PRESENT ILLNESS: We were asked by Dr. Mckeon to visit with the patient in the PACU. The patient is a 77-year-old female with a history of paroxysmal atrial fibrillation, mild mitral regurgi tation, diabetes, hypertension, and pulmonary hypertension. She was last seen at [facility] by Dr Jane Mcmullne in August of this year. She had been started on Eliquis for her high CHADS2-VASc score of 5 and subsequently developed gross hematuria. She was evaluated by Dr. Reyes of Urology and today underwent lithotripsy under general a nesthesia. Her preoperative EKG demonstrates her previously documented diffuse ST depression, which are thought to be partly related to digoxin effect. In the operating room, by report from Dr. Mckeon, she had fu rther ST depression in a single lead, V2, in the setting of vasodilation and hypotension. Her hemody namics were corrected, and ST depression came back to baseline, but he remained concerned. Upon my evaluation in the PACU, she appears comfortable. She denies any chest pressure, arm or neck pressure. No dyspnea. She does not exercise regularly, by choice, but can walk a flight of stairs w ithout cardiovascular symptoms. ALLERGIES: No known drug allergies. PAST MEDICAL HISTORY: 1. Hypertension. 2. Pulmonary hypertension. 3. Mild mitral regurgitation. 4. Paroxysmal atrial fibrillation. 5. Renal calculi. 6. Diabetes. 7. Dyslipidemia. 8. History of scoliosis. OUTPATIENT MEDICATIONS: Digoxin 125 mcg daily, estradiol, medroxyprogesterone, metformin, propafenon e 325 mg b.i.d., and aspirin 81 mg. She has been off Eliquis since August. SOCIAL HISTORY: She does not drink alcohol, and do not believe that she smokes. FAMILY HISTORY: Not applicable to the current case. PHYSICAL EXAM: VITAL SIGNS: Blood pressure is 116/59. Heart rate has been in the 50s. Oxygen satu ration is 97% on 3 L nasal cannula. She is afebrile. Respiratory rate is 18. GENERAL: Well-appear ing older female in no acute distress. HEENT: Sclerae pink. No jaundice. Mucous membranes are lyly st. Normocephalic, atraumatic. CARDIOVASCULAR: JVP is less than 10. Regular rate and rhythm, with out murmur, rub, or gallop. LUNGS: Clear anteriorly and laterally. EXTREMITIES: Warm, without td ma. NEURO: Alert and oriented x3, without gross focal neurologic deficits. Appropriate mood and af fect. LABORATORY DATA: Basic metabolic panel is essentially normal, except for a slightly elevated BUN. EKG reviewed by me and also compared with 2017 EKG and June 2017 EKG: Sinus rhythm with diffuse ST depressions consistent with digoxin effect. Lexiscan nuclear stress test in our office in July 2017: Resting ST depression, which worsened with pharmacological stress. Normal myocardial perfusion and normal left ventricular ejection fraction. Echocardiogram in our office in June of 2017 demonstrates normal LV size and systolic function. Mil d mitral regurgitation. Mild tricuspid regurgitation with estimated PA systolic pressure of 61. ASSESSMENT AND PLAN: A 77-year-old female with paroxysmal atrial fibrillation, pulmonary hypertensio n, hypertension. She had ST depressions seen in 1 lead during general anesthesia. She is now hemody namically stable, without cardiovascular symptoms. 1. EKG changes: She certainly has an abnormal resting EKG, which is unchanged from previous tracing s and reflects digoxin therapy. Abnormal EKG: As mentioned, her baseline EKG is similar to previous tracings. It is likely that her ST depression in the OR was a result of vasodilation and not acute coronary syndrome. She is stable now, and EKG is back to baseline. She had a reassuring myocardial perfusion study in our office approximately 4 months ago. I see no need for further cardiac testing at this time. 2. Atrial fibrillation: She has previously been on Eliquis, but this has been on hold as her hematu ashlyn has been evaluated. Her CHADS2-VASc score is 5, portending approximately 7% annualized stroke ri sk. I briefly discussed my recommendations for her going back on Eliquis, and she will discuss this again with Dr. Mcmullen at followup in a few weeks. 3. Pulmonary hypertension: This was seen on echocardiogram this spring. PA pressures are now highe r than they were last year. I suspect that she may have some sort of sleep disordered breathing that is contributing both to her atrial fibrillation and pulmonary hypertension. We will defer sleep med icine evaluation to the outpatient setting. 4. Systemic hypertension: Currently well controlled. Continue outpatient medical therapy. Thank you for allowing us to participate in the patient's care. She will follow up with Dr. Benedict mariscal outlined above. Case discussed in detail with Dr. Edmar Mckeon. /[id number]/MODL
[2017-11-21 16:54] VITALS: BP 101/61
== END 2017-11-21 12:50 | disposition home or self-care (01) ==
LOC: FSGY 05:36
PROVIDERS: ATTEND Specialist
PROC: 0TF48ZZ Fragmentation in Left Kidney Pelvis, Via Natural or Artificial Opening Endoscopic (ICD-10-PCS; principal; 2017-11-21 07:15)
DX: N20.0 Calculus of kidney (principal); I10 Essential (primary) hypertension; I48.0 Paroxysmal atrial fibrillation; I34.0 Nonrheumatic mitral (valve) insufficiency; E11.9 Type 2 diabetes mellitus without complications; E78.5 Hyperlipidemia, unspecified; Z79.01 Long term (current) use of anticoagulants; Z87.39 Personal history of other diseases of the musculoskeletal system and connective tissue
CPT/HCPCS: 52356; 76001; 93005; C1758; C1769; C1894; C2625; J0690; J1100; J1885; J2370; J2405; J2704; J3010; Q9967

== ENCOUNTER 2018-08-13 08:30 | Day surgery (SDC) | payer OTHER ==
[2018-08-13] MEDS ORDERED: fentaNYL 100 MCG/2 ML INJ IVP ONE (08:35)
[2018-08-13] MEDS ORDERED: BENZOCAINE UNIT DOSE SPRAY HURRICAINE MM ONE (08:35)
[2018-08-13] MEDS ORDERED: MIDAZOLAM 2 MG/2 ML VIAL IVP ONE (08:35)
[2018-08-13] MEDS ORDERED: NS 1,000 ML IV ONE (08:35)
[2018-08-13] MEDS ORDERED: ASPIRIN EC 325 MG TAB PO ONE (08:35)
[2018-08-13] MEDS ORDERED: diphenhydrAMINE 25 MG CAP PO ONE (08:35)
[2018-08-13] MEDS ORDERED: DIAZEPAM 5 MG TAB PO ONE (08:35)
[2018-08-13] MEDS ORDERED: FAMOTIDINE 20 MG TAB PO ONE (08:35)
[2018-08-13 09:24] LABS: PLATELET COUNT 275 10^3/uL (150-400)
[2018-08-13 09:39] LABS: INR 0.96 (0.83-1.16); PROTIME(PATIENT) 12.4 SEC (12.0-15.0)
--- NOTE | 2018-08-13 09:50 | PDPROPOC ---
Sedation Plan of Care Sedation Plan of Care: vital signs stable, mental status noted, patient educated of risks, benefits, alternatives, patient can tolerate sedation ASA Classification: ASA 2 Planned drugs: fentanyl, midazolam Mallampati Score: Class 2 Mallampati Reference Image: Patient passed 3-3-2 rule?: Yes
[2018-08-13] MEDS ORDERED: fentaNYL 100 MCG/2 ML INJ ONE ×2 (10:20→10:27)
[2018-08-13] MEDS ORDERED: MIDAZOLAM 2 MG/2 ML VIAL ONE ×2 (10:21→10:27)
[2018-08-13] MEDS ORDERED: LIDOCAINE 1% 300 MG/30 ML SDV ONE (10:26)
[2018-08-13] MEDS ORDERED: VERAPAMIL 5 MG/2 ML VIAL ONE (10:27)
[2018-08-13] MEDS ORDERED: IOPAMIDOL (ISOVUE-370) 150 ML BTL IV ONE (10:27)
[2018-08-13] MEDS ORDERED: HEPARIN 10,000 UNIT/10 ML MDV (1,000 UNIT/ML) ONE (10:27)
--- NOTE | 2018-08-13 11:33 | PDDXCAT ---
Diagnostic Cath Note - . Date: 08/13/18 Umbrella Mender: Benedict Indication: other (SOB, MR, MVP) - Procedure Access: left wrist (Left brachial) Procedure: left heart catheterization, coronary angiography, left ventriculogram , right heart catheterization - Materials Left Heart Cath size: 5F Left Heart Cath materials: JL4.0, JR4.0, pigtail Right Heart Cath size: 5F - Findings-Left Heart Catheterization LM: The left main is 5mm in size and bifurcates into a LAD and Circumflex system. LAD: The left anterior descending is 3mm in size. The vessel gives rise to a principal diagonal branch. There is no evidence of flow limiting disease. There is JEANINE III flow throughout. LCX: The left circumflex is 2.75mm in size and extremely tortuous. There is no evidence of obstructive disease. RCA: The right coronary artery is 4mm in size and dominant. The vessel gives rise to a PDA and PLV branch and is tortuous. There is no evidence of flow limiting disease. There is JEANINE III flow throughout. EDP: 17mmHg LVEF: 65% Wall motion: On the LV gram there is normal LV systolic function. The EF is 65% . There are no resting segmental wall motion abnormalities. The visualized portion of the thoracic aortic valve reveals three sinuses of valsalva most consistent with a trileaflet valve. There is grade 1 mitral regurgitation. There is no gradient on pullback across the aortic valve. There is no evidence of fredrick dissection or aneurysm formation of the thoracic aorta. - Findings-Right Heart Catheterization RA: SAT 82.7%; SVC 84.4 RV: 58/1/12 PA: 54/18/31; SAT 81.9% PAOP: 13 AO: 130/56/74; SAT 96.7% CO: 5.14 CI: 3.41 Complications: NONE Estimated blood loss: <50ml Assessment: The patient has no evidence of flow limiting disease. Her coronary system is extremely tortuous. The patient has grade 1 mitral regurgitation, which does not explain her pulmonary hypertension. Plan: The patient is free of flow limiting disease. The patient has pulmonary hypertension that is not explained by the severity of her mitral valve disease I would like to refer the patient to Dr. Eric Burnett at [facility]. Intervention: NONE Patient Problems: Problems Problem Status Onset Dizziness Acute Hypoxia Acute Sinus bradycardia Acute
[2018-08-13] MEDS ORDERED: ONDANSETRON 4 MG/2 ML VIAL IVP PRN (12:13)
[2018-08-13] MEDS ORDERED: NITROGLYCERIN 0.4 MG BTL SL PRN (12:13)
[2018-08-13] MEDS ORDERED: ATROPINE SULFATE 1 MG/10 ML SYR IVP PRN (12:13)
[2018-08-13] MEDS ORDERED: HYDROCODONE/APAP 5/325 TAB PO PRN (12:13)
[2018-08-13] MEDS ORDERED: OXYCODONE/APAP 5/325 TAB PO PRN (12:13)
--- NOTE | 2018-08-15 10:20 | CPEKG ---
Test Reason : OPEN Blood Pressure : / mmHG Vent. Rate : 057 BPM Atrial Rate : 057 BPM P-R Int : 215 ms QRS Dur : 092 ms QT Int : 415 ms P-R-T Axes : 082 057 -42 degrees QTc Int : 404 ms Sinus rhythm Borderline prolonged MT interval Probable anteroseptal infarct, old Confirmed by Reginaldo Swanson ([id number]) on 08/15/2018 10:20:25 AM Referred By: Dominic Mcmullen Confirmed By:Reginalod Swanson
--- NOTE | 2018-08-16 15:31 | ECHO ---
[email or web address] [id number] Main: [phone] Echocardiography Examination Transesophageal Name: FRANCESCA TERRY MR#: [id number] Study Date: 08/13/2018 Study Time: 10:21 AM Date of : 1940 Age: 77 year(s) Height: ( ) Weight: ( ) BSA: Gender: Female Examination: ADELAIDA Contrast: Image Quality: Rhythm: Heart Rate: BP: / Indication: Eval MR Procedure Staff Referring Physician: Surveillance Systems Analyst: Dilshad Barrett RDCS Reading Physician: Dominic Mcmullen MD Requesting Provider: Ordering Physician: Dominic Mcmullen MD Indication: Eval MR Conclusions The patient's LV is normal in size and demonstrates normal LV systolic function. There is moderate mitral regurgitation without evidence of true prolapse or a ruptured chordae. There is no evidence of pulmonary vein flow reversal. The patient was found to have significant pulmonary hypertension without significant V waves on the pulmonary capillary wedge trace this is inconsistent with severe mitral regurgitation. Repeat echocardiogram in 3-5 years to track the status of the mitral valve. Findings Left Ventricle: The EF is visually estimated to be 65 %. Left Atrium Appendage: Good color flow doppler in the left atrial appendage. No thrombus is identified. Mitral Valve: Mitral valve appears structurally normal. Moderate mitral regurgitation. Aortic Valve: No aortic valve regurgitation. There is no aortic stenosis. The aortic valve is trileaflet. Tricuspid Valve: Tricuspid valve leaflets are normal in appearance and function. Exam Details Patient: FRANCESCA TERRY Study Date: 08/13/2018 Page 1 of 2 10:21 AM Procedure Ordered: ADELAIDA (No Signature Object) Patient: FRANCESCA TERRY Study Date: 08/13/2018 Page 2 of 2 10:21 AM [id number]
== END 2018-08-13 16:15 | disposition home or self-care (01) ==
LOC: FCATH 08:30
PROVIDERS: ATTEND Internal Medicine Cardiovascular Disease
PROC: B2111ZZ Fluoroscopy of Multiple Coronary Arteries using Low Osmolar Contrast (ICD-10-PCS; principal; 2018-08-13)
PROC: 4A023N8 Measurement of Cardiac Sampling and Pressure, Bilateral, Percutaneous Approach (ICD-10-PCS; principal; 2018-08-13)
PROC: B2151ZZ Fluoroscopy of Left Heart using Low Osmolar Contrast (ICD-10-PCS; principal; 2018-08-13)
DX: R06.02 Shortness of breath (principal); I34.0 Nonrheumatic mitral (valve) insufficiency; I34.1 Nonrheumatic mitral (valve) prolapse; I27.20 Pulmonary hypertension, unspecified; I10 Essential (primary) hypertension; E11.9 Type 2 diabetes mellitus without complications; E78.00 Pure hypercholesterolemia, unspecified
CPT/HCPCS: 93005; 93312; 93460; C1769; J1644; J2250; J3010; Q9967

== ENCOUNTER 2018-08-13 22:04 | Emergency (ER) | payer OTHER ==
[2018-08-13 22:12] VITALS: BP 123/61
--- NOTE | 2018-08-13 22:37 | EDPHY ---
H & P Stated Complaint: bruising to l wrist after radial cath today Source: Patient Exam Limitations: No limitations - Personal History Current Tetanus Diphtheria and Acellular Pertussis (TDAP): Yes - Medical/Surgical History Hx Asthma: No Hx Chronic Respiratory Disease: No Hx Diabetes: Yes Hx Cardiac Disease: Yes Hx Renal Disease: No Hx Cirrhosis: No Hx Alcoholism: No Hx HIV/AIDS: No Hx Splenectomy or Spleen Trauma: No Other PMH: Scoleosis, DM, HTN, A-fib - Social History Smoking Status: Former smoker Time Seen by Provider: 08/13/18 22:23 HPI/ROS: HPI: This is a 77-year-old female who presents with Chief Complaint: Left wrist bruising Location: Left wrist Quality: Bruising Duration: 3 hr prior to arrival Signs and Symptoms: No bleeding, no radiation, no numbness, no weakness, no tingling, no incontinence, no decreased range of motion, + swelling, + pain, no fever Timing: Gradual onset Severity: Moderate Context: Patient is right-hand dominant, presents with 3 hr history of bruising to her left wrist status post left heart cardiac catheterization today at 10:00 a.m. Through her left radial artery. Patient was performed by Dr. Mcmullen and she has a follow-up appointment with him on August 28. Patient reports that she takes baby aspirin and digoxin for chronic atrial fibrillation. She denies any fall or injury to the area. Reports compliance with wearing the dressing and splint per cardiology postop instructions. Modifying Factors: See above Comment: ROS: A comprehensive 10 system review of systems is otherwise negative aside from elements mentioned in the history of present illness. MEDICAL/SURGICAL/SOCIAL HISTORY: Medical history: Scoliosis, DM, HTN, A-fib Surgical history: Left heart cardiac catheterization Social history: Retired. Former smoker. CONSTITUTIONAL: Petite, elderly, nontoxic-appearing, talkative white female, awake and alert, no obvious distress HEENT: Atraumatic and normocephalic, PERRL, EOMI. Nares patent; no rhinorrhea; no nasal mucosal edema. Tympanic membranes clear. Oropharynx clear, no exudate and moist pink mucosa. Airway patent. No lymphadenopathy. No meningismus. Cardiovascular: Normal S1/S2, regular rate, regular rhythm, without murmur rub or gallop. PULMONARY/CHEST: Symmetrical and nontender. Clear to auscultation bilaterally. Good air movement. No accessory muscle usage. ABDOMEN: Soft, nondistended, nontender, no rebound, no guarding, no peritoneal signs, no masses or organomegaly. No CVAT. EXTREMITIES: 2/2 radial pulses, strength 5/5, left WRIST: Volar aspect mi is pinpoint area consistent with access to left radial artery but no active bleeding. There is an area approximately 0.5 in by 0.5 in inferior to the puncture site of ecchymosis but no actual hematoma or fluctuance. Extension to 70, flexion to 80, radial deviation to 20 degree, ulnar deviation to 30, no scaphoid tenderness, no tenderness over ulnar styloid, no tenderness over radial styloid. no clubbing, no cyanosis or edema. NEUROLOGICAL: no focal neuro deficits. GCS 15. SKIN: Warm and dry, no erythema. no rash. Good capillary refill. (Laura Angeles) Constitutional: Initial Vital Signs Temperature (C) 36.5 C 08/13/18 22:09 Heart Rate 72 08/13/18 22:09 Respiratory Rate 18 08/13/18 22:09 Blood Pressure 123/61 H 08/13/18 22:09 O2 Sat (%) 88 L 08/13/18 22:09 O2 Delivery Mode Room Air Allergies/Adverse Reactions: No Known Allergies Allergy (Verified 08/13/18 22:20) Home Medications: Medication Instructions Recorded Aspirin EC [Aspirin EC 81 mg (*)] 162 mg PO DAILY 05/20/16 Calcium Carb W/Vit D [Calcium Carb 500 mg PO DAILY 05/20/16 W/Vit D 500/200 (*)] Digoxin [Lanoxin 125 mcg (RX)] 125 mcg PO DAILY 05/20/16 Estradiol 0.5 mg PO HS 05/20/16 Lisinopril [Zestril 10 mg (*)] 10 mg PO HS 05/20/16 Multivitamins [Multivitamin (*)] 1 each PO DAILY 05/20/16 Propafenone HCl [Propafenone HCl 325 mg PO BID 05/20/16 ER] medroxyPROGESTERone [Provera 2.5 5 mg PO HS 05/20/16 mg (*)] Medical Decision Making ED Course/Re-evaluation: Vital signs reviewed and initial show 88% on room air. I asked the nurse to repeat the pulse ox and it is 95% on room air. I feel this is most appropriate as patient has no hypoxia, respiratory distress and lung exam is benign. Removed from splint; bandage removed and shows no active bleeding with small area of ecchymosis but no hematoma Area had Surgifoam, Tegaderm and Coban applied. Advised to follow cardiac catheterization postop instructions per Cardiology This patient was seen under the supervision of my secondary supervising physician. I evaluated and cared for this patient independently. (Laura Angeles) PHYSICIAN DOCUMENTATION: The patient was evaluated and managed by the Physician Welding Systems And Equipment Repairer. My co- signature indicates that I have reviewed this chart and I agree with the findings and plan of care as documented. I am the secondary supervising physician. (Zoe Powell) Differential Diagnosis: Differential diagnosis includes but is not limited to hematoma, contusion, vascular compromise, nerve injury, coagulopathy. (Laura Angeles) Departure - Departure Disposition: Home, Routine, Self-Care Clinical Impression: Traumatic ecchymosis of left wrist Qualifiers: Encounter type: initial encounter Qualified Code(s): S60.212A - Contusion of left wrist, initial encounter Condition: Good Instructions: Hematoma (ED), Ecchymosis (ED) Additional Instructions: Keep the dressing dry and in place and wear splint according to Cardiology discharge instructions.. Keep follow-up appointment with Dr. Mcmullen on August 28. Referrals: Tashi Block MD [Primary Care Provider] - As per Instructions Dominic Mcmullen MD [Medical Doctor] - 08/28/18
== END 2018-08-13 22:45 | disposition home or self-care (01) ==
DX: S60.212A Contusion of left wrist, initial encounter (principal); I48.2 Chronic atrial fibrillation; I10 Essential (primary) hypertension; E11.9 Type 2 diabetes mellitus without complications; M41.9 Scoliosis, unspecified; X58.XXXA Exposure to other specified factors, initial encounter; Z98.890 Other specified postprocedural states

== ENCOUNTER → 2018-09-11 | Outpatient (CLI) | payer OTHER ==
[~2018-09-11] MED LIST changes: +IOPAMIDOL (ISOVUE 370) 100 ML BTL IV ONE; -IOPAMIDOL (ISOVUE-300) 100 ML BTL ONE
== END ==
LOC: FIMAGING 09:42
PROVIDERS: ATTEND Internal Medicine Critical Care Medicine
DX: I51.7 Cardiomegaly (principal); E04.1 Nontoxic single thyroid nodule; M41.84 Other forms of scoliosis, thoracic region
CPT/HCPCS: 71275; Q9967; 82565-PO